=== PATIENT | male | born 1970 | race Caucasian/White ===

== ENCOUNTER 2018-03-31 18:05 | Emergency (ER) | payer BC ==
--- NOTE | 2018-03-31 18:49 | ED ---
HPI Chest Pain - HPI Summary HPI Summary: This pt is a 47 y/o male presenting to [facility] c/o left side chest pain for the past couple of days. Pt reports he went to see his PCP 1 month ago and was diagnosed with bronchitis. He notes that 1 month ago he had a stuffy head, sinus headache, nonproductive cough, but denied having any SOB or chest pain. Pt was given antibiotics for bronchitis. For the past 3 weeks pt noticed chest pain mostly on the right side that he reports feeling like muscle pain. He notes this right sided chest pain was constant and not severe. For the past couple of days he has been feeling left sided chest pain that is aggravated with bending down. Denies SOB, trouble swallowing, nausea, vomiting. Additionally notes for the last 3-4 days pt has felt a "catch" in his throat that goes down his sternum. He report past issues with aspirating fluid. Denies tobacco use. Denies hx of HTN, DM, high cholesterol. - History of Current Complaint Chief Complaint: EDChestPainROMI Time Seen by Provider: 03/31/18 18:34 Hx Obtained From: Patient Onset/Duration: Started Days Ago, Still Present Timing: Lasting Days Current Severity: Mild Pain Intensity: 3 Pain Scale Used: 0-10 Numeric Chest Pain Location: Left Anterior Chest Pain Radiates: No Aggravating Factor(s): Other: - bending down Alleviating Factor(s): Nothing Associated Signs and Symptoms: Positive: Chest Pain. Negative: Shortness of Breath, Fever, Chills, Nausea, Vomiting, Other: - NEG: trouble swallowing - Allergy/Home Medications Allergies/Adverse Reactions: Allergies Allergy/AdvReac Type Severity Reaction Status Date / Time No Known Allergies Allergy Verified 03/12/14 15:49 Home Medications: Home Medications NK [No Home Medications Reported] 03/31/18 [History Confirmed 03/31/18] PMH/Surg Hx/FS Hx/Imm Hx Endocrine/Hematology History: Denies: Hx Diabetes Cardiovascular History: Denies: Hx Hypertension Infectious Disease History: No Infectious Disease History: Denies: Traveled Outside the [place] in Last 30 Days - Family History Family History: [place] - Social History Alcohol Use: None Substance Use Type: Reports: None Smoking Status (MU): Never Smoked Tobacco Review of Systems Negative: Fever, Chills Negative: Other - NEG: trouble swallowing Positive: Chest Pain Negative: Shortness Of Breath Negative: Vomiting, Nausea All Other Systems Reviewed And Are Negative: Yes Physical Exam - Summary Physical Exam Summary: Appearance: Well-appearing, Well-nourished, lying in bed comfortably Skin: Warm, dry, no obvious rash Eyes: sclera anicteric, no conjunctival pallor ENT: mucous membranes moist, pharynx appears normal Neck: Supple, nontender Respiratory: Clear to auscultation, no signs of respiratory distress Cardiovascular: Normal S1, S2. No murmurs. Normal distal pulses in tibial and radial bilaterally. Abdomen: Soft, nontender, normal active bowel sounds present Musculoskeletal: Normal, Strength/ROM Intact Neurological: A&Ox3, awake and alert, mentation is normal, speech is fluent and appropriate Psychiatric: affect is normal, does not appear anxious or depressed Triage Information Reviewed: Yes Vital Signs On Initial Exam: Initial Vitals Temp Pulse Resp BP Pulse Ox 97.8 F 59 18 118/98 98 03/31/18 18:07 03/31/18 18:07 03/31/18 18:07 03/31/18 18:07 03/31/18 18:07 Vital Signs Reviewed: Yes Diagnostics - Vital Signs Vital Signs Temp Pulse Resp BP Pulse Ox 03/31/18 18:37 60 18 97 03/31/18 18:07 97.8 F 59 18 118/98 98 - Laboratory Result Diagrams: 03/31/18 19:08 03/31/18 19:08 Lab Statement: Any lab studies that have been ordered have been reviewed, and results considered in the medical decision making process. - Radiology Chest XR Radiology Interpretation Completed By: ED Physician Summary of Radiographic Findings: No acute process. - EKG 18:07 Cardiac Rate: Bradycardia - at 57 bpm EKG Rhythm: Sinus Bradycardia Summary of EKG Findings: NSR at 57 BPM, P waves, QRS complex, and T waves are within normal limits, T waves and intervals are normal, no ischemic changes. This is a normal EKG Re-Evaluation - Re-Evaluation First Eval Re-Evaluation Time: 21:09 Comment: Reviewed lab and XR results with the pt. He will be discharged home. Chest Pain Course/Dx - Course Assessment/Plan: Pt is a 47 y/o male who presents with left side chest pain for the past couple of days. For the past 3 weeks pt noticed chest pain mostly on the right side that he describes as constant and not severe, and reports feeling more like muscle pain. For the past couple of days he has been feeling left sided chest pain that is aggravated with bending down. Blood work was obtained and it's unremarkable. Chest XR shows no acute process. EKG shows sinus bradycardia. Pt will be discharged home with follow up from his PCP for further testing if pain continues. - Diagnoses Provider Diagnoses: Non-cardiac chest pain Discharge - Sign-Out/Discharge Documenting (check all that apply): Patient Departure - Discharge home Patient Received Moderate/Deep Sedation with Procedure: No - Discharge Plan Condition: Good Disposition: HOME Patient Education Materials: Noncardiac Chest Pain (ED) Referrals: [facility] [address] [Outside] [facility] [Outside] Additional Instructions: The tests we did tonight did not show any problem in the heart or other serious pathology in the chest. It is safe for you to go home, but a followup with your regular doctor should be arranged in the next week or so. If you continue to have symptoms you may need other tests and treatment. - Billing Disposition and Condition Condition: GOOD Disposition: Home - Attestation Statements Document Initiated by Will: Yes Documenting Cyndyibe: Snehal Gore Provider For Whom Will is Documenting (Include Credential): Peng Payne MD Scribe Attestation: Snehal Mireles, scribed for Peng Payne MD on 04/01/18 at 1303. Scribe Documentation Reviewed: Yes Provider Attestation: The documentation as recorded by the Snehal stearns accurately reflects the service I personally performed and the decisions made by me, Peng Payne MD Status of Scribe Document: Viewed
[2018-03-31 19:19] LABS: ABS Basophils 0.1 10^3/ul (0-0.2); ABS Eosinophils 0.4 10^3/ul (0-0.6); ABS Lymphocytes 2.7 10^3/ul (1.0-4.8); ABS Monocytes 0.5 10^3/ul (0-0.8); ABS Neutrophils 2.3 10^3/ul (1.5-7.7); ABS Nucleated RBC 0 10^3/ul; Eosinophil % 6.1 %; Hematocrit 45 % (42-52); Hemoglobin 15.2 g/dl (14.0-18.0); Mean Corpuscular HGB Conc 34 g/dl (31-36); Mean Corpuscular Hemoglobin 32 pg (27-31); Mean Corpuscular Volume 95 fL (80-94); Nucleated Red Blood Cells % 0.1; Platelet Count 200 10^3/ul (150-450); Red Blood Count 4.77 10^6/ul (4.00-5.40); Red Cell Distribution Width 13 % (10.5-15)
[2018-03-31 19:38] LABS: Albumin/Globulin Ratio 1.4 (1-3); Calcium 8.9 mg/dL (8.6-10.3); EGFR African American 89.3 (>60); EGFR Non-African American 73.8 (>60); Globulin 2.8 g/dL (2-4); Potassium 4.3 mmol/L (3.5-5.0); Total Bilirubin 0.5 mg/dL (0.2-1.0); Total Protein 6.8 g/dL (6.4-8.9)
[2018-03-31 21:25] VITALS: BP 121/82
== END 2018-03-31 21:26 | disposition home or self-care (01) ==
LOC: ED 18:05
DX: R07.89 Other chest pain (principal); R00.1 Bradycardia, unspecified
CPT/HCPCS: 36415; 71045; 80053; 84484; 85025; 93005; 99283